=== PATIENT | male | born 1985 | race Caucasian/White ===

== ENCOUNTER → 2018-01-15 | Outpatient (CLI) | payer OTHER | LOC: BMCIMAGING 09:06 | PROVIDERS: ATTEND Emergency Medicine | DX: R18.8 Other ascites (principal); K63.9 Disease of intestine, unspecified ==

== ENCOUNTER → 2018-01-15 | Outpatient (CLI) | payer OTHER ==
[~2018-01-15] MED LIST: IOPAMIDOL (ISOVUE-300) 100 ML BTL ONE
== END ==
LOC: FIMAGING 11:40
PROVIDERS: ATTEND Emergency Medicine
DX: K52.9 Noninfective gastroenteritis and colitis, unspecified (principal); R18.8 Other ascites
CPT/HCPCS: Q9967